=== PATIENT | female | born 1985 | race Hispanic/Latino ===

== ENCOUNTER 2017-12-02 17:09 | Emergency (ER) | payer MEDICAID, SELFPAY ==
[2017-12-02 18:01] LABS: Bilirubin Negative (Negative); Blood, Urine Negative (Negative); Clarity Clear (Clear); Glucose, Urine (Dipstick) Negative (Negative); Leukocyte Trace (Negative); Nitrite Negative (Negative); Protein, Urine (Dipstick) Negative (Neg-Trace)
[2017-12-02] MEDS ORDERED: Ketorolac Tromethamine 30 MG/ML VIAL ONE (18:12)
[2017-12-02 18:23] LABS: Bacteria/HPF Rare-Few HPF (None Seen); RBC/HPF 0-3 HPF (0-3); Squamous Epithelial 0-3 HPF (0-3); WBC/HPF 0-3 HPF (0-3)
[2017-12-02 18:24] LABS: Pregnancy Test - Urine (BHCG) Negative (Negative); Pregu Control Background? CLEAR/WHITE (CLR/WHITE); Pregu Control Bar Appear? YES (CONTROL BAR)
[2017-12-02] MEDS ORDERED: Sodium Chloride 0.9% 1,000 ML ONE (18:31)
== END 2017-12-02 19:58 | disposition home or self-care (01) ==
LOC: NAV ERS 17:09
DX: B34.9 Viral infection, unspecified (principal)
CPT/HCPCS: 81003; 81015; 81025; 87804; 93005; 96361; 96374; J1885; J7050